=== PATIENT | female | born 1985 | race Caucasian/White ===

== ENCOUNTER 2017-12-24 13:02 | Emergency (ER) | payer OTHER ==
[~2017-12-24] VITALS: Ht 175.3 cm; Wt 85.0 kg
[~2017-12-24 13:02] MED LIST: ALBU6.7H INH; AZIT250T3 PO; LEVO-86 PO
[2017-12-24 13:03] VITALS: BP 141/101; PULSE 90; RESP 16; TEMP 98.2; O2SAT 99
[2017-12-24] MEDS ORDERED: CETI10CA3 PO (13:29)
[2017-12-24] MEDS ORDERED: AMOX500T PO (13:29)
--- NOTE | 2017-12-24 14:18 | PD ---
HPI Chief Complaint: Respiratory Symptoms Time Seen by Provider: 13:46 Travel History International Travel<30 days: No Contact w/Intl Traveler<30days: Yes Name of Country Traveled to: [place] Traveled to known affect area: No History of Present Illness HPI 32-year-old female presents emergency Department with complaint of respiratory infection 5 weeks. Reports cough, congestion, nasal congestion, postnasal drip. Denies ear pain or sore throat. Fever of 100.1 2 days ago. In the last week she's been treated with Augmentin, Z-Galileo, Keflex injection, steroid injection, and is now taking amoxicillin. Had onset of shortness of breath last night. She was feeling better until this past Thursday when her symptoms flared up again and she was started on amoxicillin on Thursday. Reports chest tightness. Has been using a Ventolin inhaler with no relief of symptoms. Has tried Mucinex for symptom management. No known relieving or aggravating factors. Primary care provider is Dr. Chung. No known allergies. History of hypothyroidism. Has no medical complaints. No other modifying factors or associated signs and symptoms. PFSH Past Medical History ?: Not Social History Tobacco Use: No Allergies-Medications (Allergen,Severity, Reaction): Coded Allergies: No Known Drug Allergies (Verified Allergy, Unknown, 12/24/17) Reported Meds & Prescriptions Reported Meds & Active Scripts Active Deltasone (Prednisone) 20 Mg Tab 40 Mg PO DAILY 4 Days start 12/25/2017 Proventil Hfa 6.7 GM Inh (Albuterol Sulfate) 90 Mcg/Act Aer 2 Puff INH Q4-6H PRN Reported Zyrtec (Cetirizine HCl) 10 Mg Capsule 10 Mg PO DAILY Amoxicillin 500 Mg Tab 500 Mg PO TID Synthroid (Levothyroxine Sodium) 137 Mcg Tab 137 Mcg PO DAILY Review of Systems Except as stated in HPI: all other systems reviewed are Neg Physical Exam Narrative GENERAL: Well-nourished, well-developed female patient, in no acute distress; afebrile, nontoxic-appearing SKIN: Warm and dry. No rash. HEAD: Atraumatic. Normocephalic. EYES: Pupils equal and round. No scleral icterus. No injection or drainage. ENT: Mucosa pink and moist. No erythema or exudates. No uvular edema. No uvular , palatal, or tonsillar deviation. Airway patent. EARS: Bilateral pinnae and external canals appear within normal limits. Bilateral tympanic membranes without erythema, dullness or perforation. NECK: Trachea midline. No lymphadenopathy. CARDIOVASCULAR: Regular rate and rhythm. No murmur appreciated. RESPIRATORY: No accessory muscle use. Clear to auscultation with decreased lung sounds in bilateral bases. Breath sounds equal bilaterally. No retractions or tachypnea. GASTROINTESTINAL: Abdomen soft, non-tender, nondistended. Hepatic and splenic margins not palpable. Bowel sounds are active 4 quadrants. MUSCULOSKELETAL: No obvious deformities. No clubbing. No cyanosis. No edema. NEUROLOGICAL: Awake and alert. Oriented 3. No obvious cranial nerve deficits. Motor grossly within normal limits. Normal speech. Moves all extremities. 5/5 strength to all extremities. PSYCHIATRIC: Appropriate mood and affect; insight and judgment normal. Data Data Last Documented VS Vital Signs Date Time Temp Pulse Resp B/P (MAP) Pulse Ox O2 Delivery O2 Flow Rate FiO2 12/24/17 13:03 98.2 90 16 141/101 (114) 99 Orders Orders Chest, Single Ap (12/24/17 14:16) Prednisone (Deltasone) (12/24/17 14:30) Albuterol-Ipratropium Neb (Duoneb Neb) (12/24/17 14:30) Influenzae A/B Antigen (12/24/17 14:16) Ed Discharge Order (12/24/17 15:50) MDM Medical Decision Making Medical Screen Exam Complete: Yes Emergency Medical Condition: Yes Medical Record Reviewed: Yes Differential Diagnosis Influenza, bronchitis, pneumonia Narrative Course 32-year-old female with cold/flu symptoms. She states a 5 weeks and has been treated with multiple antibiotics. She is currently taking amoxicillin. She felt better for a few days and had flare up of symptoms again on Thursday. Started amoxicillin on Thursday with no improvement in symptoms. Onset of shortness of breath and chest tightness last night. Lungs are clear and equal with decreased lung sounds in bilateral bases. 1551: Influenza A+. Chest xray concludes: Chest X-Ray 12/24/17 1416 Signed Impressions: Service Date/Time: November 14:48 - CONCLUSION: No acute cardiopulmonary disease identified. Jeff Reyes MD Discussed chest x-ray findings. Discussed viral illness and symptomatic management. Instructed patient to stop taking amoxicillin if she feels comfortable doing so, as she has been treated with multiple antibiotics in the past 5 weeks. Deltasone prescribed for home. Instructed patient to follow up with primary care provider. Patient verbalizes understanding and agreement with treatment plan. Patient is medically cleared and stable for discharge. Discussed reasons to return to the emergency department. Patient agrees with treatment plan. The patients vital signs are stable and the patient is stable for outpatient follow-up and treatment. Patient discharged home, stable and in no acute distress. Diagnosis Primary Impression: Influenza A Referrals: [facility] Primary Care Physician Patient Instructions: General Instructions, Influenza (ED), Safe Use of Cough and Cold Medicines (ED) Departure Forms: Tests/Procedures, Work Release Special Instructions: No work until fever free for 24 hours Additional Instructions: Ibuprofen or Tylenol as directed and as needed to reduce fever; may alternate ibuprofen and Tylenol as needed every 3 hours to minimize fever [id number]-omy-[id number] cold/flu medications as directed and as needed for symptom management Get plenty of sleep/rest Drink plenty of fluids to prevent dehydration; such as Gatorade, Powerade, Pedialyte [place] diet to encourage nutrition such as crackers, fruit, applesauce, toast, soup etc. Use an air humidifier/turn off ceiling fans Follow-up with your primary care provider within 1 day Return immediately to the emergency department with worsening of symptoms Med/Other Pt SpecificInfo: Prescription(s) given Scripts Prednisone (Deltasone) 20 Mg Tab 40 MG PO DAILY for 4 Days, #8 TAB 0 Refills start 12/25/2017 Prov: Radha Zelaya 12/24/17 Disposition: 01 DISCHARGE HOME Condition: Stable Radha Zelaya Dec 24, 2017 14:18
[2017-12-24] MEDS ORDERED: predniSONE 20 MG TAB PO ONE (14:30)
[2017-12-24] MEDS ORDERED: RESP: ALBUTEROL 2.5 MG/IPRATROPIUM 0.5 MG NEB (SCH) INH ONE (14:30)
[2017-12-24] MEDS ORDERED: PRED-503 PO (15:25)
--- NOTE | 2017-12-24 15:45 | RADRPT ---
EXAM DATE/TIME: 12/24/2017 14:48 [facility] COMPARISON: No previous studies available for comparison. INDICATIONS : Short of breath, chest pressure from cough. MEDICAL HISTORY : SURGICAL HISTORY : None. ENCOUNTER: Initial ACUITY: 1 month PAIN SCORE: 0/10 LOCATION: Bilateral chest FINDINGS: Single AP view of the chest. The lungs are clear. Cardiomediastinal silhouette within normal limits. No evidence of pleural effusion or pneumothorax. CONCLUSION: No acute cardiopulmonary disease identified. Jeff Reyes MD on December 24, 2017 at 15:42 Board Certified Radiologist. This report was verified electronically.
== END 2017-12-24 15:56 | disposition home or self-care (01) ==
LOC: NEPD 13:02
DX: J10.1 Influenza due to other identified influenza virus with other respiratory manifestations (principal); E03.9 Hypothyroidism, unspecified
CPT/HCPCS: 71045; 87804; 94664; 99284; J7512